=== PATIENT | male | born 1955 | race Caucasian/White ===

== ENCOUNTER 2017-08-04 08:37 | Day surgery (SDC) | payer OTHER ==
[2017-08-04] MEDS ORDERED: Lactated Ringers 1,000 ML IV SCH (08:45)
[2017-08-04] MEDS ORDERED: Propofol 200 MG/20 ML SDV IV ONE (10:30)
[2017-08-04] MEDS ORDERED: Midazolam 1 MG/ML 2 ML SDV IV ONE (10:30)
--- NOTE | 2017-08-04 11:01 | PCM.OPNOTE ---
- General Post-Op/Procedure Note Date of Surgery/Procedure: 08/04/17 Operative Procedure(s): c scope Findings: sigmoid diverticulosis Pre Op Diagnosis: screening Post-Op Diagnosis: sigmoid diverticulosis Anesthesia Technique: MAC Primary Surgeon: Damion Boyce Anesthesia Provider: Lana Aguilar Pathology: none Complications: None Condition: Good Free Text/Narrative:: see dictation
[2017-08-04 13:56] VITALS: BP 110/61
--- NOTE | 2017-08-04 17:01 | OR ---
DATE OF OPERATION: 08/04/2017 SURGEON: Damion Boyce MD PROCEDURE PERFORMED: Colonoscopy. PREOPERATIVE DIAGNOSIS: Need for screening colonoscopy. POSTOPERATIVE DIAGNOSIS: Sigmoid diverticulosis. INDICATIONS FOR PROCEDURE: This is a 62-year-old white male who presents for colonoscopy. He was offered and accepted same. DESCRIPTION OF OPERATION: After an excellent IV sedation was administered, digital rectal exam was performed. No marked abnormality was noted. The flexible colonoscope was inserted and advanced to the cecum without difficulty. The prep was excellent. The following findings were noted. Ascending colon, unremarkable. Transverse colon, unremarkable. Descending colon, unremarkable. Sigmoid, occasional diverticula, otherwise unremarkable. Rectum and anus, unremarkable. Colon was deflated. Scope was removed. The patient tolerated the procedure well and was taken to recovery room in a good condition. Repeat colonoscopy in 10 years. /[id number] /[id number]
== END 2017-08-04 12:08 | disposition home or self-care (01) ==
LOC: FB.SDS 08:37
PROVIDERS: ATTEND Surgery
DX: Z12.11 Encounter for screening for malignant neoplasm of colon (principal); K57.30 Diverticulosis of large intestine without perforation or abscess without bleeding; Z79.899 Other long term (current) drug therapy
CPT/HCPCS: 45378; J2250; J2704; J7120